=== PATIENT | female | born 1960 | race Caucasian/White ===

== ENCOUNTER 2023-03-20 12:46 | Emergency (ER) | payer MEDICAID, OTHER ==
[~2023-03-20] VITALS: Ht 165 cm; Wt 90.7 kg
[2023-03-20 13:29] LABS: BASOPHILS % (AUTO) 1 % (0-10); EOSINOPHILS % (AUTO) 0 % (0-10); HEMATOCRIT 41 % (35-52); HEMOGLOBIN 13.8 g/dL (11.5-16.0); LYMPHOCYTES % (AUTO) 41 % (12-44); MEAN CORPUSCULAR HEMOGLOBIN 31 pg (25-34); MEAN CORPUSCULAR HGB CONC 34 g/dL (32-36); MEAN CORPUSCULAR VOLUME 93 fL (80-99); MEAN PLATELET VOLUME 10.6 fL (9.0-12.2); MONOCYTES # (AUTO) 0.3 10^3/uL (0.0-1.0); MONOCYTES % (AUTO) 6 % (0-12); NEUTROPHILS # (AUTO) 2.5 10^3/uL (1.8-7.8); NEUTROPHILS % (AUTO) 52 % (42-75); PLATELET COUNT 222 10^3/uL (130-400); WHITE BLOOD COUNT 4.9 10^3/uL (4.3-11.0)
[2023-03-20] MEDS ORDERED: ASPIRIN 81 MG CHEW (CHILDREN'S ASA) PO ONE (13:30)
[2023-03-20] MEDS ORDERED: ANTACID SUSP 30 ML UDC (MYLANTA) PO ONE (13:30)
[2023-03-20] MEDS ORDERED: LIDOCAINE 2% VISCOUS 15 ML UDC PO ONE (13:30)
--- NOTE | 2023-03-20 13:35 | ED Chest Pain ---
General Chief Complaint: Chest Pain Stated Complaint: CHRONIC ACID REFLUX | CHEST PAINS Nursing Triage Note: PT TAKES NEXIUM FOR ACID REFLUX AND IT HAS BECAME WORSE OVER THE LAST COUPLE OF DAYS. WOKE UP WITH SEVERE CHEST PAIN THAT SHE THINKS IS ACID REFULX THIS AM. Source: patient Exam Limitations: no limitations History of Present Illness Date Seen by Provider: Mar 20, 2023 Time Seen by Provider: 13:32 Initial Comments Patient is a 63-year-old female who presents ED for chest pain. She states she has had chest pain over the past several months. This pain has gotten worse over the past 2 weeks. Pain is located left sided upper chest. Described as squeezing sensation. This pain increases after she eats. Pain was worse this morning after drinking coffee and eating breakfast. She rates pain 4 out of 10 on arrival. She does have a history of coronary artery disease. She had 3 stents placed secondary to an CO in 2017. She is currently on Plavix, metoprolol, aspirin, lovastatin, losartan. She states she has been seen at [place] [facility] for this pain and was diagnosed with GERD. She had a upper EGD in 2018 that was otherwise unremarkable. She denies fever, short of breath, cough, diarrhea. She does have some upper abdominal discomfort with this pain. She is currently on Nexium and. She has decreased her diet and her coffee intake without much improvement. She does states she does feel nauseous at times with this pain Allergies and Home Medications Allergies Coded Allergies: Penicillins (Verified Allergy, Unknown, HIVES, 03/20/23) Patient Home Medication List Home Medication List Reviewed: Yes Sucralfate (Carafate) 1 Gram Tablet, 1 GM PO QID Prescribed by: VANIA NIEVES on 03/20/23 0122 Review of Systems Review of Systems Constitutional: No chills, No diaphoresis, No malaise, No weakness EENTM: No Eye Pain Respiratory: Denies Cough Cardiovascular: Chest Pain Gastrointestinal: Abdominal Pain; Denies Diarrhea; Nausea; Denies Vomiting Genitourinary: Denies Burning, Denies Discharge, Denies Drainage, Denies Frequency Musculoskeletal: No back pain, No joint pain Skin: No change in color, No change in hair/nails All Other Systems Reviewed Negative Unless Noted: Yes Past [id number] Hx Patient Social History Tobacco Use?: No Substance use?: No Alcohol Use?: No Physical Exam Vital Signs Vital Signs - First Documented 03/20/23 13:03 Temp 36.6 Pulse 78 Resp 16 B/P (MAP) 177/101 (126) Pulse Ox 98 O2 Delivery Room Air Capillary Refill : Less Than 3 Seconds Height, Weight, BMI Height: '" Weight: lbs. oz. kg; 33.00 BMI Method: General Appearance: No Apparent Distress, WD/WN HEENT: PERRL/EOMI, TMs Normal, Normal ENT Inspection, Pharynx Normal Neck: Full Range of Motion, Normal Inspection, Non Tender, Supple Respiratory: Chest Non Tender, Lungs Clear, Normal Breath Sounds, No Accessory Muscle Use, No Respiratory Distress Cardiovascular: Regular Rate, Rhythm, No Edema, No Gallop, No JVD Gastrointestinal: Normal Bowel Sounds, No Organomegaly, No Pulsatile Mass, Non Tender Extremity: Normal Capillary Refill, Normal Inspection, Normal Range of Motion, Non Tender Neurologic/Psychiatric: Alert, Oriented x3, No Motor/Sensory Deficits, Normal Mood/Affect, wound/ostomy clinical nurse specialist II-XII Norm as Tested Skin: Normal Color, Warm/Dry Progress/Results/Core Measures Results/Orders Lab Results Laboratory Tests Test 03/20/23 13:20 Range/Units White Blood Count 4.9 4.3-11.0 10^3/uL Red Blood Count 4.39 3.80-5.11 10^6/uL Hemoglobin 13.8 11.5-16.0 g/dL Hematocrit 41 35-52 % Mean Corpuscular Volume 93 80-99 fL Mean Corpuscular Hemoglobin 31 25-34 pg Mean Corpuscular Hemoglobin Concent 34 32-36 g/dL Red Cell Distribution Width 13.2 10.0-14.5 % Platelet Count 222 130-400 10^3/uL Mean Platelet Volume 10.6 9.0-12.2 fL Immature Granulocyte % (Auto) 0 % Neutrophils (%) (Auto) 52 42-75 % Lymphocytes (%) (Auto) 41 12-44 % Monocytes (%) (Auto) 6 0-12 % Eosinophils (%) (Auto) 0 0-10 % Basophils (%) (Auto) 1 0-10 % Neutrophils # (Auto) 2.5 1.8-7.8 10^3/uL Lymphocytes # (Auto) 2.0 1.0-4.0 10^3/uL Monocytes # (Auto) 0.3 0.0-1.0 10^3/uL Eosinophils # (Auto) 0.0 0.0-0.3 10^3/uL Basophils # (Auto) 0.0 0.0-0.1 10^3/uL Immature Granulocyte # (Auto) 0.0 0.0-0.1 10^3/uL Prothrombin Time 12.7 12.2-14.7 SEC INR Comment 0.9 0.8-1.4 Activated Partial Thromboplast Time 29 24-35 SEC Sodium Level 142 135-145 MMOL/L Potassium Level 4.4 3.6-5.0 MMOL/L Chloride Level 110 H 98-107 MMOL/L Carbon Dioxide Level 22 21-32 MMOL/L Anion Gap 10 5-14 MMOL/L Blood Urea Nitrogen 15 7-18 MG/DL Creatinine 0.85 0.60-1.30 MG/DL Estimat Glomerular Filtration Rate 77 BUN/Creatinine Ratio 18 Glucose Level 107 H 70-105 MG/DL Calcium Level 10.0 8.5-10.1 MG/DL Corrected Calcium 8.5-10.1 MG/DL Magnesium Level 2.2 1.6-2.4 MG/DL Total Bilirubin 0.4 0.1-1.0 MG/DL Aspartate Amino Transf (AST/SGOT) 20 5-34 U/L Alanine Aminotransferase (ALT/SGPT) 21 0-55 U/L Alkaline Phosphatase 67 40-136 U/L Myoglobin 23.8 10.0-92.0 NG/ML Troponin I < 0.028 <0.028 NG/ML B-Type Natriuretic Peptide 34.2 <100.0 PG/ML Total Protein 8.9 H 6.4-8.2 GM/DL Albumin 5.0 H 3.2-4.5 GM/DL Lipase 42 8-78 U/L My Orders Orders - JOSSUE BRAGG PA Cbc With Automated Diff (03/20/23 13:19) Magnesium (03/20/23 13:19) Chest 1 View, Ap/Pa Only (03/20/23 13:19) Ekg Tracing (03/20/23 13:19) Comprehensive Metabolic Panel (03/20/23 13:19) Myoglobin Serum (03/20/23 13:19) Protime With Inr (03/20/23 13:19) Partial Thromboplastin Time (03/20/23 13:19) O2 (03/20/23 13:19) Monitor-Rhythm Ecg Trace Only (03/20/23 13:19) Ed Iv/Invasive Line Start (03/20/23 13:19) Lipase (03/20/23 13:19) Bnp Zohaib (03/20/23 13:19) Troponin I Bates (03/20/23 13:19) Aspirin Chewable Tablet (Baby Aspirin Ch (03/20/23 13:30) Lidocaine 2% Viscous 15 Ml (Xylocaine Vi (03/20/23 13:30) Antacid Suspension (Mylanta Suspension (03/20/23 13:30) Medications Given in ED Current Medications Medications Dose Ordered Sig/Akash Route Start Time Stop Time Status Last Admin Dose Admin Al Hydrox/Mg Hydrox/Simethicone 30 ml ONCE ONCE PO 03/20/23 13:30 03/20/23 13:31 DC 03/20/23 13:40 30 ML Aspirin 324 mg ONCE ONCE PO 03/20/23 13:30 03/20/23 13:31 DC 03/20/23 13:40 324 MG Lidocaine HCl 15 ml ONCE ONCE PO 03/20/23 13:30 03/20/23 13:31 DC 03/20/23 13:40 15 ML Vital Signs/I&O 03/20/23 13:03 Temp 36.6 Pulse 78 Resp 16 B/P (MAP) 177/101 (126) Pulse Ox 98 O2 Delivery Room Air Blood Pressure Mean: 126 Comment Sinus rhythm with occasional supraventricular premature complexes, 82 bpm, QRS duration 93 MS, QTc 396 MS Departure Communication (PCP) No previous ER visits. Most of her care has been done at [facility]. Upper EGD 2019 she states was unremarkable. She has been having this intermittent left-sided substernal chest pressure over the past several months worse over the past 2 weeks. Occurs after she eats. Currently on Nexium. She has been on several PPIs in the past. She does report some upper abdominal discomfort. History of coronary artery disease cardiac stent placed in 2017. Currently on Eliquis and blood pressure medication. Patient in no acute distress. Differential diagnosis of acute coronary syndrome, gastritis, esophagitis, Yan's, esophageal stricture, peptic ulcer. She has no right upper quadrant tenderness on exam due to location of pain cardiac work-up was performed. EKG showed sinus rhythm without evidence of ST elevation, depression, T wave inversion. Normal troponin, BMP. CBC and chemistry grossly unremarkable. Normal lipase. Patient was given a full aspirin 324. Chest x- ray was negative for pneumonia, pneumothorax. Due to her history of GERD, acid reflex, gastritis patient was given GI cocktail with near resolution of her jaylin n. She states the GI cocktail did help and feels much better at this time. I do believe this is secondary to esophagitis, gastritis. Discussed other potential etiologies such as developing ulcer which could be causing the worsening pain especially after eating. Appears does not to radiate to her back. Discussed adding Carafate. She states she has been on Protonix in the past and it has helped but was recently switched to Nexium. She will continue with the Nexium. Did provide GI general surgery follow-up with Dr. Lara. Would likely benefit with upper EGD. Discussed continue with diet changes such as avoiding caffeine, spicy foods, coffee. Elevate head at night. This does not appear cardiac in nature. Due to reassuring EKG and cardiac work-up will continue with outpatient follow-up with general surgery. If any worsening symptoms or pain to return back to ED. Impression Primary Impression: Gastroesophageal reflux disease Additional Impression: Chest pain Disposition: 01 HOME, SELF-CARE Condition: Stable Departure-Patient Inst. Decision time for Depature: 14:41 Referrals: KYAW BLACKWOOD MD (PCP) Primary Care Physician MAUREEN LARA DO Patient Instructions: Acid Reflux and GERD in Adults (DC) Add. Discharge Instructions: Recommend adding Carafate to your Nexium. Continue with your diet changes and avoid caffeine, coffee, spicy foods. Avoid eating late at night. Elevate your bed about 30 to 40 degrees at night. If any worsening symptoms return back to ED. Provided Dr. Lara general surgeon who I recommend following up with to g et a upper EGD. All discharge instructions reviewed with patient and/or family. Voiced understanding. Scripts Sucralfate (Carafate) 1 Gram Tablet 1 GM PO QID, #40 TAB Prov: JOSSUE BRAGG 03/20/23 JOSSUE BRAGG Mar 20, 2023 13:35
[2023-03-20 13:41] LABS: INR 0.9 (0.8-1.4); PROTHROMBIN TIME PATIENT 12.7 SEC (12.2-14.7)
[2023-03-20 13:43] LABS: CHLORIDE 110 MMOL/L (98-107); POTASSIUM 4.4 MMOL/L (3.6-5.0); SODIUM 142 MMOL/L (135-145)
[2023-03-20 13:46] LABS: GLUCOSE 107 MG/DL (70-105); TOTAL PROTEIN 8.9 GM/DL (6.4-8.2)
[2023-03-20 13:47] LABS: BILIRUBIN,TOTAL 0.4 MG/DL (0.1-1.0); CARBON DIOXIDE 22 MMOL/L (21-32)
[2023-03-20 13:49] LABS: ALKALINE PHOSPHATASE 67 U/L (40-136); CREATININE SERUM 0.85 MG/DL (0.60-1.30); GFR ESTIMATED 77
[2023-03-20 13:50] LABS: BUN/CREATININE RATIO 18
[2023-03-20 13:52] LABS: ALANINE AMINOTRANSFERASE 21 U/L (0-55)
[2023-03-20 13:53] LABS: MAGNESIUM 2.2 MG/DL (1.6-2.4)
[2023-03-20 13:54] LABS: LIPASE 42 U/L (8-78)
--- NOTE | 2023-03-20 14:14 | Diagnostic Imaging Report ---
INDICATION: Chest pain. Frontal chest obtained at 1:48 p.m. Heart and mediastinal silhouette are normal in appearance. The lungs are clear. There is no pneumothorax or pleural fluid. IMPRESSION: Negative chest. Dictated by: Dictated on workstation # [id number]
[2023-03-20] MEDS ORDERED: SUCR1TAB36 PO (14:42)
[2023-03-20 14:54] VITALS: BP 149/80
== END 2023-03-20 14:54 | disposition home or self-care (01) ==
LOC: ER 12:51
DX: K21.9 Gastro-esophageal reflux disease without esophagitis (principal); Z79.02 Long term (current) use of antithrombotics/antiplatelets; Z79.899 Other long term (current) drug therapy; Z95.5 Presence of coronary angioplasty implant and graft
CPT/HCPCS: 36415; 71045; 80053; 83690; 83735; 83874; 83880; 84484; 85025; 85610; 85730; 93005; 93041